=== PATIENT | male | born 1955 | race Caucasian/White ===

== ENCOUNTER 2019-01-11 23:56 | Emergency (ER) | payer MEDICARE, OTHER ==
[~2019-01-11] VITALS: Ht 157.5 cm; Wt 95.3 kg
[~2019-01-11 23:56] MED LIST: GLYB2.5T4 PO; LOSA25TA3 PO; METR500T PO; NEBI5TAB3 PO; OMEG1CAP55 PO
[2019-01-12 00:23] VITALS: BP_SYST 164
--- NOTE | 2019-01-12 00:23 | NUR ---
Patient to ER bed 03 to gown for evaluation. Side rails up. Report given to ISAAC Hernandez.
--- NOTE | 2019-01-12 00:45 | NUR ---
Dr. Patiño bedside for pt eval
--- NOTE | 2019-01-12 00:52 | NUR ---
Pt BIB to ED C/O Abd pain 06/04 for about a week. Pt states he was Dx with diverticulosis and was on Antibiotx got better. But then, now he is back seeking help for about the same thing. No other injuries and or complaints noted or observed. Resting on gurney with rails up
--- NOTE | 2019-01-12 00:56 | NUR ---
Radiology bedside, in stable condition
--- NOTE | 2019-01-12 00:59 | NUR ---
Portable X ray well tolerated. Now radiology taking pt to CT scan. VSS No s/s of acute distress
[2019-01-12 01:07] LABS: ANION GAP 14 (5-15); CALCIUM 8.4 mg/dL (8.4-11.0); CHLORIDE 101 mmol/L (98-107); CREATININE 1.87 mg/dL (0.55-1.30); GLUCOSE 148 mg/dL (70-99); POTASSIUM 3.7 mmol/L (3.5-5.1); SODIUM SERUM 139 mmol/L (136-145); UREA NITROGEN, BLOOD 37 mg/dL (8-21)
[2019-01-12 01:09] LABS: INR 1.1 (0.80-1.20)
[2019-01-12 01:12] LABS: RED BLOOD CELL COUNT(AUTO) 5.07 MIL/uL (4.2-6.2); WHITE BLOOD COUNT (AUTO) 8.8 K/uL (4.8-10.8)
[2019-01-12 01:13] LABS: HEMATOCRIT 43.3 % (36-54); HEMOGLOBIN 15.2 g/dL (14.0-18.0); MEAN CORPUSCULAR HEMOGLOBIN 30 pg (27-31); MEAN CORPUSCULAR HGB CONC 35 % (32-36); MEAN CORPUSCULAR VOLUME 86 fL (79.0-98.0); PLATELET COUNT (AUTO) 200 K/uL (130-430); RED CELL DISTRIBUTION WIDTH 13.7 % (9.0-15.0)
[2019-01-12] MEDS ORDERED: KETOROLAC TROMETHAMINE 30 MG VIAL IVP ONE (01:15)
[2019-01-12] MEDS ORDERED: LORazepam 2 MG/ML VIAL (FOR ER USE) IVP ONE (01:15)
[2019-01-12 01:16] LABS: ALANINE AMINOTRANSFERASE 51 U/L (12-78); ALBUMIN 3.4 g/dL (3.4-4.8); ASPARTATE AMINOTRANSFERASE 43 U/L (10-37); GFR AFRICAN AMERICAN 47 mL/min (>90); LIPASE 169 U/L (73-393); TOTAL BILIRUBIN 0.8 mg/dL (0.0-1.0)
[2019-01-12 01:31] LABS: ATYPICAL LYMPHOCYTES % 0 % (0-0); BAND % (MANUAL) 0 % (0-6); BASOPHILS % (MANUAL) 0 % (0-2); EOSINOPHILS % (MANUAL) 10 % (0-7); LYMPHOCYTES % (MANUAL) 27 % (20-46); METAMYELOCYTES % 1 % (0-0); MONOCYTES % (MANUAL) 6 % (0-11); MYELOCYTES % 0 % (0-0)
--- NOTE | 2019-01-12 03:45 | NUR ---
Lab reporting that some instruments not working thereby causing delay in analysis (Urine and blood)
[2019-01-12 04:02] LABS: BILIRUBIN,URINE NEGATIVE (NEGATIVE); BLOOD, URINE NEGATIVE (NEGATIVE); CLARITY/URINE CLEAR (CLEAR); COLOR,URINE YELLOW (YELLOW); GLUCOSE,URINE NEGATIVE (NEGATIVE); KETONES,URINE NEGATIVE (NEGATIVE); LEUKOCYTE ESTERASE ,URINE NEGATIVE (NEGATIVE); NITRITE, URINE NEGATIVE (NEGATIVE); PH,URINE 5.5 (5.0-8.0); PROTEIN URINE TRACE (NEGATIVE); UROBILINOGEN,URINE 0.2 (0.2-1.0)
[2019-01-12 04:07] LABS: BACTERIA,URINE FEW /HPF (None Seen); RBC,URINE 0-3 /HPF (0-3); WBC,URINE 0-3 /HPF (0-3)
[2019-01-12 04:44] VITALS: BP_SYST 164
--- NOTE | 2019-01-12 04:44 | NUR ---
Patient given written and verbal discharge instructions and verbalizes understanding. ER MD discussed with patient the results and treatment provided. Patient in stable condition. ID arm band removed. IV catheter removed intact and dressing applied, no active bleeding. Rx of flagyl and motrin given. Patient educated on pain management and to follow up with PMD. Pain Scale 0/10. Opportunity for questions provided and answered. Medication side effect fact sheet provided.
== END 2019-01-12 04:44 | disposition home or self-care (01) ==
LOC: SED 23:56
DX: R10.9 Unspecified abdominal pain (principal); R19.7 Diarrhea, unspecified; I10 Essential (primary) hypertension; Z88.1 Allergy status to other antibiotic agents; Z88.8 Allergy status to other drugs, medicaments and biological substances; Z79.899 Other long term (current) drug therapy
CPT/HCPCS: 36415; 71045; 74176; 80053; 81000; 83690; 83970; 84484; 85007; 85027; 85610; 93005; 96374; 96375; 99284; J1885; J2060